=== PATIENT | female | born 1955 | race Caucasian/White ===

== ENCOUNTER 2018-08-25 14:23 | Emergency (ER) | payer OTHER ==
[~2018-08-25] VITALS: Ht 165.1 cm; Wt 84.4 kg
[~2018-08-25 14:23] MED LIST: BYETTA PEN 11 PENIN1; CIPROFLOXACIN500 M1 PO; FLONASE16 GM; GLUCOPHAGE1000 MG; HYDROCODON-ACE1 EAC7; NORCO 5-325 TA1 EACH PO; PRINIVIL5 MG; PSEUDOEPHEDRIN120 M1; RELAFEN750 MG; TRAMADOL 50 MG50 MG
[2018-08-25 14:44] LABS: URINE BILIRUBIN NEGATIVE (Negative); URINE BLOOD NEGATIVE (Negative); URINE CLARITY CLEAR; URINE COLOR YELLOW; URINE GLUCOSE-RANDOM* NEGATIVE (Negative); URINE KETONES TRACE (Negative); URINE LEUKOCYTES-REFLEX NEGATIVE (Negative); URINE NITRITE-REFLEX NEGATIVE (Negative); URINE PROTEIN (DIPSTICK) NEGATIVE (Negative); URINE SPECIFIC GRAVITY >= 1.030 (1.005-1.035); URINE UROBILINOGEN 0.2 E.U./dl (0.2-1.0)
[2018-08-25 15:29] LABS: ABSOLUTE NEUTROPHILS 3.4 thou/uL (1.4-8.2); BASOPHILS 1.1 % (0.0-2.0); EOSINOPHILS 2.5 % (0.0-3.0); HEMATOCRIT 36.9 % (37.0-47.0); HEMOGLOBIN 12.7 gm/dL (12.0-15.0); LYMPHOCYTES 37.6 % (24.0-44.0); MCH 32.2 pg (26.0-34.0); MCHC 34.4 g/dL (28.0-37.0); MCV 93.6 fL (80.0-100.0); MONOCYTES 5.8 % (1.0-8.0); PLATELET COUNT 309 thou/uL (150-400); RBC 3.94 mil/uL (4.20-5.00); RDW 13.8 % (10.5-14.5); WBC 6.4 thou/uL (4.0-11.0)
[2018-08-25 15:35] LABS: ANION GAP 9 mmol/L (7-16); BUN 18 mg/dL (7-18); CALCIUM 8.6 mg/dL (8.5-10.1); CHLORIDE 105 mmol/L (98-107); CO2 26 mmol/L (21-32); CREATININE 0.7 mg/dL (0.6-1.0); GLUCOSE 207 mg/dL (74-106); POTASSIUM 3.7 mmol/L (3.5-5.1); SODIUM 140 mmol/L (136-145)
[2018-08-25 15:44] LABS: ALBUMIN 3.2 g/dL (3.4-5.0); LIPASE 97 U/L (73-393); SGOT 14 U/L (15-37); SGPT 34 U/L (30-65); TOTAL BILIRUBIN 0.2 mg/dL (<0.1-1.0); TOTAL PROTEIN 6.6 g/dL (6.4-8.2); TROPONIN-I <0.06 ng/mL (<0.06)
[2018-08-25 16:50] VITALS: BP 110/64
--- NOTE | 2018-08-26 07:53 | EKG ---
[place] [address] [facility] [employer] [address] ELECTROCARDIOGRAM REPORT Name: BRENDAN MIKE Room [id number] ������������������ Admission: 08/25/18 ������������������ Attend Phys: Discharge: 08/25/18 ������������������ Date of : 55 Report #: [id number] ����������������������������������������������������������������� [id number] THIS REPORT FOR: //name// [facility] ED Test Date: 2018-08-25 Test Time: 14:48:04 Pat Name: BRENDAN MIKE Department: Room: Gender: F [employer]: : 1955 Requested By: Chichi Negrete Order Number: [id number] MD: Selvin Higgins Measurements Intervals [place] Rate: 80 P: 39 [place]: 142 QRS: -50 QRSD: 146 T: 23 QT: 430 QTc: 497 Interpretive Statements Sinus rhythm RBBB and LAFB No previous ECG available for comparison Electronically Signed On 08-26-2018 7:53:01 CDT by Selvin Higgins [email or web address] ��������������������������������������������� <ELECTRONICALLY SIGNED> ���������������������������������������� By: Selvin Higgins MD, [facility] ��������������������������������������������� 08/26/18 0753 1448 1448 Selvin Higgins MD, FACC /EPI
== END 2018-08-25 16:51 | disposition home or self-care (01) ==
LOC: ER 14:23
PROVIDERS: Physician Assistant
DX: R10.84 Generalized abdominal pain (principal); E11.9 Type 2 diabetes mellitus without complications; M79.7 Fibromyalgia; Z88.1 Allergy status to other antibiotic agents; Z88.5 Allergy status to narcotic agent; Z88.6 Allergy status to analgesic agent; Z91.040 Latex allergy status